=== PATIENT | male | born 1995 | race Caucasian/White ===

== ENCOUNTER 2023-12-14 12:06 | Day surgery (SDC) | payer BC ==
--- NOTE | 2023-12-11 13:46 | HP ---
PROCEDURE DATE: 12/14/2023 HISTORY OF PRESENT ILLNESS: The patient is a 28 year-old with 2 episodes of pain and drainage from pilonidal in the past, last required incision and drainage. He is interested in excision. PAST MEDICAL HISTORY: Denied any other chronic illnesses. CURRENT MEDICATIONS: None on a regular basis. ALLERGIES: NKDA. PAST SURGICAL HISTORY: He had oral surgery and had tonsillectomy and adenoidectomy in the past as well as I&D of the pilonidal in the past. FAMILY HISTORY: Negative with regards to this problem. SOCIAL HISTORY: No smoking. Occasional alcohol use. REVIEW OF SYSTEMS: 12 systems reviewed. No chest pain or palpitations. Other systems negative or noncontributory other than above and per preadmission questionnaire. PHYSICAL EXAMINATION: Height 5' 10", BMI 39.46. GENERAL: No acute distress. HEENT: Sclerae nonicteric. EOM intact. NECK: No JVD. CHEST: Equal excursion. Nonlabored breathing. CVS: Regular rate and rhythm. ABDOMEN: Soft. EXTREMITIES: No cyanosis or edema. NEURO: Alert and oriented, moving extremities symmetrically. PSYCH: Appropriate mood and affect. SKIN: Dry. Pilonidal area pits, no drainage currently. IMPRESSION: 1. RECURRENT PILONIDAL DISEASE. Options discussed. Offered excision. Risks explained in detail, but not limited to, bleeding; infection; aches and pains; risk of slow healing; risk of failing to heal; possible need for packing and if packed, 90% may heal in 8-12 weeks by secondary intent; he understands the extreme importance of keeping all hair away from the area during the healing phase and postoperatively to minimized risk of recurrence; general risks of anesthesia, deep venous thrombosis, pulmonary embolism, or pneumonia; possibility of nonhealing possibly requiring other procedures or referral to neuroplastics or other referrals, but not limited to. Consent obtained. Will proceed with biopsy pilonidal cyst disease, possible flap closure, possible packing. He understands that flap closure is possible, but if it fails to heal may need to still pack and heal by secondary intent. He also understands there is a good 20% at least or more of recurrence, but not limited to. He agrees to the planned procedure.
[2023-12-14] MEDS ORDERED: EXPAREL 133 MG/10 ML VIAL IJ ONE (12:07)
[2023-12-14] MEDS ORDERED: Lactated Ringers 1,000 ML IV ONE (12:12)
[2023-12-14] MEDS: Lactated Ringers 1,000 ML IV SCH (12:14)
[2023-12-14 12:30] VITALS: RESP 18; TEMP 97.7
[2023-12-14] MEDS ORDERED: CEFAZOLIN 2 GM-D5W BAG** 2 GM/50 ML ML IV SCH ×2 (12:30)
[2023-12-14] MEDS ORDERED: KEFZOL 1 GM** 3 G in Sodium Chloride 0.9% 50 ML 50 ML IV SCH (12:45)
[2023-12-14] MEDS ORDERED: BRIDION 200MG/2ML IV ONE (14:12)
[2023-12-14] MEDS ORDERED: Decadron 4 MG INJ ONE (14:12)
[2023-12-14] MEDS ORDERED: DIPRIVAN 200 MG/20 ML IV ONE (14:12)
[2023-12-14] MEDS ORDERED: Zofran 4 MG/2 ML VIAL ONE (14:12)
[2023-12-14] MEDS ORDERED: Xylocaine-Mpf 2% 5 Ml Vial ONE (14:12)
[2023-12-14] MEDS ORDERED: Zemuron 100 MG/10 ML ONE (14:12)
[2023-12-14] MEDS ORDERED: TORAdol 30 mg Injection ONE (14:12)
[2023-12-14] MEDS ORDERED: SUBLIMAZE 100 MCG/2 ML ONE ×2 (14:12→14:46)
[2023-12-14] MEDS ORDERED: Sensorcaine 0.25% 10 ML ONE (14:39)
[2023-12-14 16:09] VITALS: BP 119/69; PULSE 77; O2SAT 97
--- NOTE | 2023-12-15 08:03 | OP ---
SURGERY DATE/TIME: 12/14/2023 1428 PREOPERATIVE DIAGNOSIS: Recurrent pilonidal cyst disease in need of excision. POSTOPERATIVE DIAGNOSIS: Recurrent pilonidal cyst disease in need of excision. PROCEDURE: Excisional biopsy of pilonidal cyst disease with advancement flap closure 4 cm in vivo with margins. SURGEON: Dr. Andre Juarez. ANESTHESIA: General. ESTIMATED BLOOD LOSS: Minimal. INDICATIONS: As noted above. Risks and benefits explained in detail but not limited to, consent obtained. DESCRIPTION OF PROCEDURE AND FINDINGS: The patient is taken to the operating room. General anesthesia induced. Placed in prone position, prepped and draped in the usual sterile fashion. After official time out and no disagreement with planned procedure, marking out around after removing the visible hair on the cyst surface with mosquito clamp marking around the pits. Dissection carried down to the underlying tissue and the underlying fascia and passed off. Incised the indurated area and passed off. At this point as there had been no rosetta process, it was felt that it was worthwhile to try to close this with flaps about 1 cm in either direction and advanced back to the midline with interrupted 3-0 Vicryl closing the deep and superficial subcu flaps. Skin closed with 4-0 Vicryl in running subcuticular fashion, some interrupted 3-0 Prolene used to reinforce the area in vertical mattress fashion, a couple layers of glue and after dried sterile dressing applied. The patient tolerated the procedure well. Findings were discussed with his mother out in the waiting area including avoiding pressure on the area and taking it easy getting up and down and to keep all hair away from the area. Family member understood. The patient tolerated the procedure well. He was transferred to the recovery room in stable condition.
== END 2023-12-14 16:28 | disposition home or self-care (01) ==
LOC: SDC 12:06
PROVIDERS: ATTEND Surgery
DX: L05.91 Pilonidal cyst without abscess (principal)
CPT/HCPCS: J1100; J1885; J2405; J2704; J3010